=== PATIENT | female | born 1935 | race Caucasian/White ===

== ENCOUNTER 2017-09-10 19:37 | Inpatient (IN) ==
[2017-09-10] MEDS ORDERED: FUROSEMIDE 40 MG/4 ML VIAL IV STA (20:29)
[2017-09-10] MEDS ORDERED: ALBUTEROL/IPRATROPIUM 3 ML NEB RESP TX STA (20:29)
[2017-09-10] MEDS ORDERED: methylPREDNISolone SOD SUC 125 MG/2 ML VIAL IV STA (20:29)
[2017-09-10 20:36] LABS: Basophils % 0.2 % (0.0-0.8); Eosinophils # 0.2 10*3/uL (0.0-0.87); Eosinophils % 1.5 % (0.00-10.9); Hematocrit 37.8 VOL% (35.7-47.0); Hemoglobin 11.9 GM/DL (12.0-16.0); Immature Granulocytes % 0.7 %; Immature Granulocytes Absolute 0.09 #; Lymphocytes # 1.6 10*3/uL (1.4-4.0); Lymphocytes % 13.1 % (21.3-54.2); Mean Corpuscular HGB Conc 31.5 GM/DL (32-36); Mean Corpuscular Hemoglobin 27 PG (27-34); Mean Corpuscular Volume 84.6 FL (87-102); Monocytes # 1.1 10*3/uL (0.11-0.8); Monocytes % 9.2 % (1.7-12.7); Neutrophils # 9.1 10*3/uL (1.4-7.4); Neutrophils % 75.3 % (38.7-73.9); Platelet Count 308 T/CUMM (130-400); Red Blood Count 4.47 MC/CUMM (3.8-5.5); Red Cell Distribution Width 16.9 % (9.3-17.3)
[2017-09-10 20:55] LABS: ABG Base Excess 5.7 MMOL/L (-2.5-2.5); ABG HCO3 29.5 MMOL/L (20-26); ABG Oxygen Saturation 94.8 % (95-100); ABG PCO2 54.4 MM HG (35-48); ABG PH 7.381 (7.35-7.45); ABG PO2 80.4 MM HG (80-95); ABG TCO2 28.7 MMOL/L (23-27); Allen Test Positive
[2017-09-10 20:56] LABS: Ammonia 13 UMOL/L (11-32)
[2017-09-10 21:02] LABS: Alanine Aminotransferase 26 U/L (13-56); Albumin 3.5 G/DL (3.4-5.0); Alkaline Phosphatase 97 U/L (45-117); Aspartate Amino Transferase 24 U/L (0-37); Bilirubin,Total < 0.39 MG/DL (0.2-1.0); Blood Urea Nitrogen 26 MG/DL (7-18); Glucose 126 MG/DL (74-106); Potassium 4.3 MMOL/L (3.5-5.1); Sodium 143 MMOL/L (136-145); Total Protein 6.8 G/DL (6.4-8.3); Troponin I Only < 0.015 NG/ML (0.00-0.045)
[2017-09-10 21:48] LABS: Apearance,Urine CLEAR (Clear); Bilirubin,Urine Negative (Negative); Blood, Urine Negative (Negative); Glucose,Urine (UA) Negative (Negative); Ketones,Urine Negative (Negative); Mucus,Urine Occasional /LPF (Occasional); Nitrite,Urine Negative (Negative); Protein,Urine Negative; RBC,Urine 1 /HPF (0-4); Squamous Epithelial Cell,Urine Occasional /HPF (0-10); Urine Color Yellow (Yellow); Urine Specific Gravity 1.015 (1.001-1.035); Urine Urobilinogen < 2.0 EU/DL (0.2-1.0); WBC,Urine 1 /HPF (0-6)
[2017-09-10] MEDS ORDERED: FUROSEMIDE 100 MG/10 ML VIAL ONE (22:00)
[2017-09-10] MEDS ORDERED: methylPREDNISolone SOD SUC 125 MG/2 ML VIAL ONE (22:00)
[2017-09-10] MEDS ORDERED: ONDANSETRON 4 MG/2 ML VIAL IV PRN (23:27)
[2017-09-10] MEDS ORDERED: ACETAMINOPHEN 325 MG TABLET PO PRN (23:27)
[2017-09-11 02:56] LABS: Basophils % 0.2 % (0.0-0.8); Eosinophils % 0.1 % (0.00-10.9); Hematocrit 39.2 VOL% (35.7-47.0); Hemoglobin 12.3 GM/DL (12.0-16.0); Immature Granulocytes % 0.6 %; Immature Granulocytes Absolute 0.07 #; Lymphocytes # 0.9 10*3/uL (1.4-4.0); Lymphocytes % 7.3 % (21.3-54.2); Mean Corpuscular HGB Conc 31.4 GM/DL (32-36); Mean Corpuscular Hemoglobin 26 PG (27-34); Mean Corpuscular Volume 83.4 FL (87-102); Mean Platelet Volume 10.3 FL (9.6-12.0); Monocytes # 0.2 10*3/uL (0.11-0.8); Monocytes % 1.3 % (1.7-12.7); Neutrophils % 90.5 % (38.7-73.9); Platelet Count 298 T/CUMM (130-400); Red Cell Distribution Width 16.9 % (9.3-17.3); White Blood Count 12.1 T/CUMM (4-12)
[2017-09-11 03:37] LABS: Osmolality,Calculated 290.3 MOS/KG (273-304); Potassium 3.8 MMOL/L (3.5-5.1); Risk Ratio 4.89; Thyroid Stimulating Hormone 0.661 uIU/ml (0.358-3.74); VLDL CHOLESTEROL 28.6 MG/DL
[2017-09-11] MEDS: ALBUTEROL/IPRATROPIUM 3 ML NEB RESP TX SCH ×2 (07:13→21:11)
[2017-09-11] MEDS: PANTOPRAZOLE 40 MG TABLET PO SCH (09:24)
[2017-09-11] MEDS: ENOXAPARIN 40 MG/0.4 ML SYRINGE SUBCUT SCH (09:24)
[2017-09-12 05:33] LABS: Basophils % 0.4 % (0.0-0.8); Eosinophils # 0.1 10*3/uL (0.0-0.87); Eosinophils % 0.7 % (0.00-10.9); Hematocrit 37.9 VOL% (35.7-47.0); Hemoglobin 11.7 GM/DL (12.0-16.0); Immature Granulocytes % 0.4 %; Immature Granulocytes Absolute 0.04 #; Lymphocytes # 2.1 10*3/uL (1.4-4.0); Lymphocytes % 19.5 % (21.3-54.2); Mean Corpuscular HGB Conc 30.9 GM/DL (32-36); Mean Corpuscular Hemoglobin 26 PG (27-34); Mean Corpuscular Volume 83.7 FL (87-102); Monocytes # 0.8 10*3/uL (0.11-0.8); Monocytes % 7.2 % (1.7-12.7); Neutrophils # 7.9 10*3/uL (1.4-7.4); Neutrophils % 71.8 % (38.7-73.9); Platelet Count 273 T/CUMM (130-400); Red Blood Count 4.53 MC/CUMM (3.8-5.5); Red Cell Distribution Width 16.9 % (9.3-17.3)
[2017-09-12 05:45] LABS: Calcium 9.3 MG/DL (8.5-10.1); Osmolality,Calculated 288.1 MOS/KG (273-304); Potassium 3.9 MMOL/L (3.5-5.1)
[2017-09-12] MEDS: ALBUTEROL/IPRATROPIUM 3 ML NEB RESP TX SCH ×2 (07:05→19:34)
[2017-09-12] MEDS: PANTOPRAZOLE 40 MG TABLET PO SCH ×2 (09:14→21:57)
[2017-09-12] MEDS: ENOXAPARIN 40 MG/0.4 ML SYRINGE SUBCUT SCH (09:14)
[2017-09-12] MEDS ORDERED: DICLOFENAC 1% GEL 100 GM TUBE TOP PRN (09:58)
[2017-09-12] MEDS ORDERED: LORazepam 2 MG/1 ML VIAL IV ONE (13:33)
[2017-09-12] MEDS ORDERED: FUROSEMIDE 40 MG/4 ML VIAL IV ONE (18:48)
[2017-09-12] MEDS ORDERED: ALBUTEROL/IPRATROPIUM 3 ML NEB RESP TX SCH (19:00)
[2017-09-12] MEDS ORDERED: NON-FORMULARY MEDICATION (Umeclidinium Brm/Vilanterol Tr [Anoro Ellipta] 1 PUFF) INH SCH (21:00)
[2017-09-12] MEDS: POLYETHYLENE GLYCOL POWDER 17 GM PACK PO SCH (21:56)
[2017-09-12] MEDS: CLORAZEPATE 3.75 MG TABLET PO SCH (21:56)
[2017-09-12] MEDS: RALOXIFENE 60 MG TABLET PO SCH (21:57)
[2017-09-12] MEDS: GABAPENTIN 600 MG TABLET PO SCH (21:57)
[2017-09-12] MEDS: MONTELUKAST 10 MG TABLET PO SCH (21:57)
[2017-09-12] MEDS: DOCUSATE/SENNA 50-8.6 MG TABLET PO SCH (21:57)
[2017-09-12] MEDS: LATANOPROST 0.005% OPH SOLN 2.5 ML BOTTLE BOTH EYES SCH (22:38)
[2017-09-13 04:06] LABS: Basophils % 0.4 % (0.0-0.8); Eosinophils # 0.3 10*3/uL (0.0-0.87); Eosinophils % 2.7 % (0.00-10.9); Hematocrit 38.6 VOL% (35.7-47.0); Hemoglobin 11.6 GM/DL (12.0-16.0); Immature Granulocytes % 0.5 %; Immature Granulocytes Absolute 0.05 #; Lymphocytes # 2.1 10*3/uL (1.4-4.0); Lymphocytes % 22.2 % (21.3-54.2); Mean Corpuscular HGB Conc 30.1 GM/DL (32-36); Mean Corpuscular Hemoglobin 26 PG (27-34); Mean Corpuscular Volume 85.6 FL (87-102); Mean Platelet Volume 11.5 FL (9.6-12.0); Monocytes # 0.9 10*3/uL (0.11-0.8); Monocytes % 9.3 % (1.7-12.7); Neutrophils % 64.9 % (38.7-73.9); Platelet Count 250 T/CUMM (130-400); Red Blood Count 4.51 MC/CUMM (3.8-5.5); Red Cell Distribution Width 16.7 % (9.3-17.3); White Blood Count 9.3 T/CUMM (4-12)
[2017-09-13 04:35] LABS: Albumin 3.1 G/DL (3.4-5.0); Bilirubin,Total 0.6 MG/DL (0.2-1.0); Calcium 9.1 MG/DL (8.5-10.1); Osmolality,Calculated 285.1 MOS/KG (273-304); Potassium 4.1 MMOL/L (3.5-5.1); Total Protein 6.2 G/DL (6.4-8.3)
[2017-09-13] MEDS: ALBUTEROL/IPRATROPIUM 3 ML NEB RESP TX SCH ×2 (07:40→19:37)
[2017-09-13] MEDS: POTASSIUM CHLORIDE 20 MEQ TABLET PO SCH (08:22)
[2017-09-13] MEDS: RALOXIFENE 60 MG TABLET PO SCH ×2 (08:22→20:40)
[2017-09-13] MEDS: SPIRONOLACTONE 50 MG TABLET PO SCH (08:23)
[2017-09-13] MEDS: CETIRIZINE 10 MG TABLET PO SCH (08:23)
[2017-09-13] MEDS: MOMETASONE 0.1% CREAM 15 GM TUBE TOP SCH (08:23)
[2017-09-13] MEDS: FUROSEMIDE 40 MG TABLET PO SCH (08:23)
[2017-09-13] MEDS: GABAPENTIN 600 MG TABLET PO SCH ×2 (08:23→20:40)
[2017-09-13] MEDS: ENOXAPARIN 40 MG/0.4 ML SYRINGE SUBCUT SCH (08:28)
[2017-09-13] MEDS: POLYETHYLENE GLYCOL POWDER 17 GM PACK PO SCH (20:39)
[2017-09-13] MEDS: MONTELUKAST 10 MG TABLET PO SCH (20:40)
[2017-09-13] MEDS: CLORAZEPATE 3.75 MG TABLET PO SCH (20:40)
[2017-09-13] MEDS: LATANOPROST 0.005% OPH SOLN 2.5 ML BOTTLE BOTH EYES SCH (20:40)
[2017-09-13] MEDS: DOCUSATE/SENNA 50-8.6 MG TABLET PO SCH (20:40)
[2017-09-13] MEDS: PANTOPRAZOLE 40 MG TABLET PO SCH (20:41)
[2017-09-14 05:39] LABS: Basophils % 0.5 % (0.0-0.8); Eosinophils # 0.3 10*3/uL (0.0-0.87); Eosinophils % 4.3 % (0.00-10.9); Hematocrit 38.4 VOL% (35.7-47.0); Hemoglobin 11.6 GM/DL (12.0-16.0); Immature Granulocytes % 0.5 %; Immature Granulocytes Absolute 0.04 #; Lymphocytes # 1.7 10*3/uL (1.4-4.0); Lymphocytes % 21.5 % (21.3-54.2); Mean Corpuscular HGB Conc 30.2 GM/DL (32-36); Mean Corpuscular Hemoglobin 26 PG (27-34); Mean Corpuscular Volume 84.8 FL (87-102); Mean Platelet Volume 11.3 FL (9.6-12.0); Monocytes # 0.8 10*3/uL (0.11-0.8); Monocytes % 9.8 % (1.7-12.7); Neutrophils % 63.4 % (38.7-73.9); Platelet Count 264 T/CUMM (130-400); Red Blood Count 4.53 MC/CUMM (3.8-5.5); Red Cell Distribution Width 16.4 % (9.3-17.3); White Blood Count 7.8 T/CUMM (4-12)
[2017-09-14 06:01] LABS: Albumin 3.1 G/DL (3.4-5.0); Bilirubin,Total 0.6 MG/DL (0.2-1.0); Calcium 9.2 MG/DL (8.5-10.1); Osmolality,Calculated 281.4 MOS/KG (273-304); Potassium 4.2 MMOL/L (3.5-5.1); Total Protein 6.2 G/DL (6.4-8.3)
[2017-09-14] MEDS: ALBUTEROL/IPRATROPIUM 3 ML NEB RESP TX SCH (07:42)
[2017-09-14] MEDS: FUROSEMIDE 40 MG TABLET PO SCH (08:42)
[2017-09-14] MEDS: CETIRIZINE 10 MG TABLET PO SCH (08:42)
[2017-09-14] MEDS: POTASSIUM CHLORIDE 20 MEQ TABLET PO SCH (08:42)
[2017-09-14] MEDS: GABAPENTIN 600 MG TABLET PO SCH (08:42)
[2017-09-14] MEDS: SPIRONOLACTONE 50 MG TABLET PO SCH (08:42)
[2017-09-14] MEDS: RALOXIFENE 60 MG TABLET PO SCH (08:42)
[2017-09-14] MEDS: ENOXAPARIN 40 MG/0.4 ML SYRINGE SUBCUT SCH (08:45)
[2017-09-14] MEDS: MOMETASONE 0.1% CREAM 15 GM TUBE TOP SCH (08:51)
[2017-09-14] MEDS ORDERED: TUBERCULIN SKIN TEST 0.1 ML SYRINGE INTRADERM ONE (11:21)
[2017-09-14 11:36] VITALS: BP 119/76
== END 2017-09-14 15:47 | DRG 312 ==
LOC: N.EDINP 19:37 → N.ED 19:37 → SUATTDRO 22:56 → N.TELES 09-11 00:27
PROVIDERS: ADMIT Internal Medicine; ATTEND Internal Medicine